=== PATIENT | female | born 1960 | race Caucasian/White ===

== ENCOUNTER 2024-08-14 23:03 | Emergency (ER) | payer MEDICAID ==
[~2024-08-14] VITALS: Ht 152.4 cm; Wt 59.0 kg
[2024-08-14] MEDS ORDERED: ATOR10TA PO (23:12)
[2024-08-14] MEDS ORDERED: IBAN150T16 PO (23:12)
[2024-08-14] MEDS ORDERED: LOSA25TA27 PO (23:12)
[2024-08-14] MEDS ORDERED: ONDANSETRON ODT 4 MG TAB.RAPDIS ONE (23:35)
[2024-08-14] MEDS ORDERED: HYDROMORPHONE 1 MG/1 ML DISP.SYRIN ONE (23:35)
[2024-08-14 23:39] LABS: *BILIRUBIN,URIN NEGATIVE (NEGATIVE); *CLARITY,URINE CLEAR (CLEAR); *COLOR,URINE YELLOW (YELLOW); *KETONES,URINE NEGATIVE (NEGATIVE); *PROTEIN,URINE TRACE (NEGATIVE); *UROBILINOGEN,URINE 0.2 E.U./dl (NORMAL); LEUKOCYTE ESTERASE ,URINE NEGATIVE (NEGATIVE); NITRITE, URINE NEGATIVE (NEGATIVE); UGLUCOSE NEGATIVE (NEGATIVE)
[2024-08-14] MEDS: HYDROMORPHONE 1 MG/1 ML DISP.SYRIN IM ONE (23:39)
[2024-08-14] MEDS: ONDANSETRON ODT 4 MG TAB.RAPDIS SL ONE (23:40)
[2024-08-14 23:47] LABS: *BLOOD, URINE TRACE (NEGATIVE)
[2024-08-14 23:58] LABS: BACTERIA,URINE FEW /HPF (NONE SEEN); SQUAMOUS EPITHELIAL CELL,UR FEW /HPF (NONE SEEN); URIC ACID CRYSTALS,URINE FEW /HPF (NONE SEEN); WBC,URINE 0-3 /HPF (0-3)
[2024-08-15] MEDS ORDERED: ONDA4TAB11 PO (00:34)
[2024-08-15] MEDS ORDERED: CYCL10TA9 PO (00:34)
[2024-08-15] MEDS ORDERED: HYDR-3980 PO (00:34)
[2024-08-15 00:47] VITALS: BP 138/76; TEMP 97.8; O2SAT 98
== END 2024-08-15 00:48 | disposition home or self-care (01) ==
LOC: ER 23:09
DX: G89.29 Other chronic pain (principal); M54.9 Dorsalgia, unspecified; E78.5 Hyperlipidemia, unspecified; Z79.899 Other long term (current) drug therapy
CPT/HCPCS: 99284; 81001; 72100; 96372; J1171; A4606; A4663; Q0162